=== PATIENT | male | born 1945 | race African-American/Black ===

== ENCOUNTER 2016-09-24 12:47 | Inpatient (IN) | payer BC, MEDICARE ==
[~2016-09-24] VITALS: Ht 165.1 cm; Wt 83.5 kg
[~2016-09-24 12:47] MED LIST: AMLO-511 PO; DIVA250T25 PO; FLUO-191 PO; METF500T4 PO
[2016-09-24 13:21] LABS: GLUCOSE,POINT OF CARE 102 MG/DL (70-110)
[2016-09-24] MEDS ORDERED: QUET300T2 PO (13:23)
[2016-09-24] MEDS ORDERED: RIVA15T PO (13:23)
[2016-09-24] MEDS ORDERED: GABA-531 PO (13:23)
[2016-09-24 14:32] LABS: BASOPHILS # (AUTO) 0.02 K/uL (0.00-0.20); BASOPHILS % (AUTO) 0.4 % (0.0-2.0); EOSINOPHILS # (AUTO) 0.42 K/uL (0.00-0.70); EOSINOPHILS % (AUTO) 7.66 % (1.0-6.0); HEMATOCRIT 40.3 % (41-53); HEMOGLOBIN 13.2 g/dL (13.5-17.5); LYMPHOCYTES # (AUTO) 1.4 K/uL (1.0-4.8); LYMPHOCYTES % (AUTO) 25.3 % (22.0-44.0); MEAN CORPUSCULAR HEMOGLOBIN 26.8 pg (26.0-34.0); MEAN CORPUSCULAR HGB CONC 32.7 G/dL (31.0-37.0); MEAN CORPUSCULAR VOLUME 82 fL (80-100); MONOCYTES # (AUTO) 0.5 K/uL (0.1-1.0); MONOCYTES % (AUTO) 8.3 % (2.0-9.0); NEUTROPHILS # (AUTO) 3.2 K/uL (1.8-7.7); NEUTROPHILS % (AUTO) 58.3 % (40.0-70.0); PLATELET COUNT (AUTO) 238 K/uL (150-450); RED BLOOD CELL COUNT(AUTO) 4.92 MIL/uL (4.50-5.90); RED CELL DISTRIBUTION WIDTH 16.2 % (11.5-14.5); WHITE BLOOD COUNT (AUTO) 5.5 K/uL (4.5-11.0)
[2016-09-24 14:43] LABS: ANION GAP 9 mmol/L (8-16); CALCIUM, TOTAL 8.8 mg/dL (8.8-10.5); CARBON DIOXIDE 28 mmol/L (22-29); CHLORIDE 108 mmol/L (98-107); CREATININE 2.22 mg/dL (0.60-1.30); GLOMERULAR FILTR. RATE CALC 36 mL/min (>60); POTASSIUM 4.8 mmol/L (3.5-5.1); SODIUM SERUM 145 mmol/L (136-145); UREA NITROGEN, BLOOD 22 mg/dL (7-18)
[2016-09-24 14:49] LABS: ALANINE AMINOTRANSFERASE 21 U/L (12-78); ALBUMIN 3.7 g/dL (3.4-5.0); ASPARTATE AMINOTRANSFERASE 17 U/L (15-37); BILIRUBIN,TOTAL 0.3 mg/dL (0.1-1.0); TOTAL PROTEIN, SERUM 7.5 g/dL (6.4-8.2)
[2016-09-24] MEDS ORDERED: HALOPERIDOL 5 MG TABLET PO PRN (16:15)
[2016-09-24] MEDS ORDERED: LORazepam 2 MG TABLET PO PRN (16:15)
[2016-09-24 17:30] VITALS: BP 107/73
[2016-09-25 07:24] LABS: PROTHROMBIN TIME 10.4 SEC (9.4-11.6)
[2016-09-25 07:37] LABS: CHOL/HDL RATIO 2.7 (4.2-7.3)
[2016-09-25 07:39] LABS: HEMOGLOBIN A1C 6.5 % (4.5-6.2)
[2016-09-25 08:30] VITALS: BP 119/77
[2016-09-25] MEDS ORDERED: AmLODIPine BESYLATE 5 MG TABLET PO SCH (09:00)
[2016-09-25] MEDS ORDERED: RIVAROXABAN 15 MG TABLET PO SCH (09:00)
[2016-09-25 11:24] LABS: CALCIUM, TOTAL 8.1 mg/dL (8.8-10.5); CREATININE 1.87 mg/dL (0.60-1.30); MAGNESIUM 1.9 mg/dL (1.80-2.40); PHOSPHORUS 4.1 mg/dL (2.5-4.9); POTASSIUM 4.8 mmol/L (3.5-5.1)
[2016-09-25 14:36] LABS: APPEARANCE,URINE CLEAR (CLEAR); GLUCOSE, URINE (UA) NEGATIVE (NEGATIVE); KETONES,URINE NEGATIVE (NEGATIVE); LEUKOCYTE ESTERASE ,URINE NEGATIVE (NEGATIVE); OCCULT BLOOD,URINE NEGATIVE (NEGATIVE); PH,URINE 5.5 (5.0-8.0); PROTEIN,URINE NEGATIVE (NEGATIVE)
[2016-09-25 14:41] LABS: RBC,URINE None Seen /HPF (0-2); SQUAMOUS EPITHELIAL CELL,UR Rare /LPF (None Seen); WBC,URINE None Seen /HPF (0-5)
[2016-09-25 16:00] VITALS: BP 138/81
[2016-09-25] MEDS: APIXABAN 5 MG TABLET PO SCH (17:18)
[2016-09-25] MEDS: ZOLPIDEM TARTRATE 10 MG TABLET PO PRN (23:47)
[2016-09-26 07:00] LABS: CALCIUM, TOTAL 7.6 mg/dL (8.8-10.5); CREATININE 1.63 mg/dL (0.60-1.30); MAGNESIUM 1.7 mg/dL (1.80-2.40); PHOSPHORUS 3.5 mg/dL (2.5-4.9); POTASSIUM 4.4 mmol/L (3.5-5.1)
[2016-09-26] MEDS ORDERED: MAGNESIUM OXIDE 400 MG TABLET PO ONE (08:15)
[2016-09-26] MEDS ORDERED: MAGNESIUM SULFATE 1 GM in DEXTROSE 5%-WATER 50 ML IV ONE (08:15)
[2016-09-26] MEDS: APIXABAN 5 MG TABLET PO SCH ×2 (08:27→16:04)
[2016-09-26 08:30] VITALS: BP 144/87
[2016-09-26 19:28] VITALS: BP 125/78
[2016-09-26] MEDS: ZOLPIDEM TARTRATE 10 MG TABLET PO PRN (21:44)
[2016-09-27 08:03] VITALS: BP 156/88
[2016-09-27] MEDS: APIXABAN 5 MG TABLET PO SCH ×2 (08:49→16:07)
[2016-09-27] MEDS: FLUoxetine HCL 20 MG CAPSULE PO SCH (08:50)
[2016-09-27] MEDS: GABAPENTIN 300 MG CAPSULE PO SCH (08:51)
[2016-09-27] MEDS: AmLODIPine BESYLATE 5 MG TABLET PO SCH (10:44)
[2016-09-27 17:00] VITALS: BP 129/78
[2016-09-27] MEDS ORDERED: QUEtiapine FUMARATE 300 MG TABLET PO SCH (21:00)
[2016-09-27] MEDS: ZOLPIDEM TARTRATE 10 MG TABLET PO PRN (22:15)
[2016-09-28 06:41] VITALS: BP 155/90
[2016-09-28 07:23] LABS: CREATININE 1.51 mg/dL (0.60-1.30); MAGNESIUM 1.8 mg/dL (1.80-2.40); POTASSIUM 4.2 mmol/L (3.5-5.1)
[2016-09-28 08:00] VITALS: BP 140/89
[2016-09-28] MEDS: APIXABAN 5 MG TABLET PO SCH ×2 (08:08→16:08)
[2016-09-28] MEDS: GABAPENTIN 300 MG CAPSULE PO SCH (08:08)
[2016-09-28] MEDS: AmLODIPine BESYLATE 5 MG TABLET PO SCH ×2 (08:08→09:00)
[2016-09-28] MEDS: FLUoxetine HCL 20 MG CAPSULE PO SCH (08:09)
[2016-09-28] MEDS ORDERED: AmLODIPine BESYLATE 2.5 MG TABLET PO ONE (10:00)
[2016-09-28] MEDS ORDERED: QUET200T PO (11:06)
[2016-09-28] MEDS ORDERED: ACETAMINOPHEN 325 MG TABLET PO PRN (11:15)
[2016-09-28 16:28] VITALS: BP 128/85
[2016-09-28] MEDS: ZOLPIDEM TARTRATE 10 MG TABLET PO PRN (21:43)
[2016-09-29] MEDS: ZIPRASIDONE HCL 40 MG CAPSULE PO SCH ×2 (06:57→17:36)
[2016-09-29 08:30] VITALS: BP 138/80
[2016-09-29] MEDS: FLUoxetine HCL 20 MG CAPSULE PO SCH (09:46)
[2016-09-29] MEDS: APIXABAN 5 MG TABLET PO SCH ×2 (09:46→17:36)
[2016-09-29] MEDS: GABAPENTIN 300 MG CAPSULE PO SCH ×2 (09:49→14:09)
[2016-09-29] MEDS: AmLODIPine BESYLATE 5 MG TABLET PO SCH (09:49)
[2016-09-29 16:22] VITALS: BP 155/76
[2016-09-30] MEDS: ZIPRASIDONE HCL 40 MG CAPSULE PO SCH ×2 (06:58→16:25)
[2016-09-30 08:05] VITALS: BP 144/80
[2016-09-30] MEDS: AmLODIPine BESYLATE 5 MG TABLET PO SCH (08:21)
[2016-09-30] MEDS: GABAPENTIN 300 MG CAPSULE PO SCH ×2 (08:22→16:25)
[2016-09-30] MEDS: APIXABAN 5 MG TABLET PO SCH ×2 (08:22→16:25)
[2016-09-30] MEDS ORDERED: FLUoxetine HCL 20 MG CAPSULE PO SCH (09:00)
[2016-09-30 17:32] VITALS: BP 151/86
[2016-09-30] MEDS: ZOLPIDEM TARTRATE 10 MG TABLET PO PRN (22:26)
[2016-10-01] MEDS ORDERED: ZIPRASIDONE HCL 60 MG CAPSULE PO SCH (07:30)
[2016-10-01] MEDS: GABAPENTIN 300 MG CAPSULE PO SCH (08:09)
[2016-10-01] MEDS: APIXABAN 5 MG TABLET PO SCH (08:09)
[2016-10-01] MEDS: AmLODIPine BESYLATE 5 MG TABLET PO SCH (08:09)
[2016-10-01] MEDS ORDERED: FLUoxetine HCL 20 MG CAPSULE PO SCH (09:00)
[2016-10-01 09:24] VITALS: BP 136/77
[2016-10-01] MEDS ORDERED: ZIPR60CA2 PO (14:33)
[2016-10-01] MEDS ORDERED: APIX5TAB PO (14:43)
== END 2016-10-01 15:00 | disposition home or self-care (01) | DRG 885 ==
LOC: EEVIPCON 12:54 → EMS 12:54 → 3EX 16:45
PROVIDERS: ADMIT Psychiatry & Neurology Psychiatry; ATTEND Psychiatry & Neurology Psychiatry
DX: F25.0 Schizoaffective disorder, bipolar type (principal); F14.20 Cocaine dependence, uncomplicated; N17.9 Acute kidney failure, unspecified; R45.851 Suicidal ideations; J44.9 Chronic obstructive pulmonary disease, unspecified; F17.210 Nicotine dependence, cigarettes, uncomplicated; E11.22 Type 2 diabetes mellitus with diabetic chronic kidney disease; I12.9 Hypertensive chronic kidney disease with stage 1 through stage 4 chronic kidney disease, or unspecified chronic kidney disease; K21.9 Gastro-esophageal reflux disease without esophagitis; N18.9 Chronic kidney disease, unspecified; N40.0 Benign prostatic hyperplasia without lower urinary tract symptoms; Z59.0 Homelessness; Z85.038 Personal history of other malignant neoplasm of large intestine; Z86.711 Personal history of pulmonary embolism; Z91.5 Personal history of self-harm; Z79.01 Long term (current) use of anticoagulants; Z79.899 Other long term (current) drug therapy
CPT/HCPCS: 76770; 82570; 82962; 83036; 83735; 84100; 84300; 84540; 99285; G0480

== ENCOUNTER 2016-11-17 10:26 | Inpatient (IN) | payer MEDICARE, SELFPAY ==
[~2016-11-17] VITALS: Ht 165.1 cm; Wt 79.4 kg
[~2016-11-17 10:26] MED LIST changes: +APIX5TAB PO; -DIVA250T25 PO; +GABA-531 PO; -METF500T4 PO; +ZIPR60CA2 PO
[2016-11-17] MEDS ORDERED: HALO1 PO (10:41)
[2016-11-17 10:47] LABS: GLUCOSE,POINT OF CARE 108 MG/DL (70-110)
[2016-11-17 11:33] LABS: ANION GAP 8 mmol/L (8-16); CALCIUM, TOTAL 8.9 mg/dL (8.8-10.5); CARBON DIOXIDE 30 mmol/L (22-29); CHLORIDE 103 mmol/L (98-107); CREATININE 1.71 mg/dL (0.60-1.30); GLOMERULAR FILTR. RATE CALC 48 mL/min (>60); POTASSIUM 4.1 mmol/L (3.5-5.1); SODIUM SERUM 141 mmol/L (136-145); UREA NITROGEN, BLOOD 9 mg/dL (7-18)
[2016-11-17 11:38] LABS: ALANINE AMINOTRANSFERASE 23 U/L (12-78); ALBUMIN 3.6 g/dL (3.4-5.0); ASPARTATE AMINOTRANSFERASE 15 U/L (15-37); BILIRUBIN,TOTAL 0.4 mg/dL (0.1-1.0); TOTAL PROTEIN, SERUM 7.5 g/dL (6.4-8.2)
[2016-11-17 11:39] LABS: BASOPHILS % (AUTO) 0.4 % (0.0-2.0); EOSINOPHILS % (AUTO) 1.5 % (1.0-6.0); HEMATOCRIT 43.3 % (41-53); HEMOGLOBIN 13.7 g/dL (13.5-17.5); LYMPHOCYTES % (AUTO) 20.6 % (22.0-44.0); MEAN CORPUSCULAR HEMOGLOBIN 26.1 pg (26.0-34.0); MEAN CORPUSCULAR HGB CONC 31.5 G/dL (31.0-37.0); MEAN CORPUSCULAR VOLUME 83 fL (80-100); MONOCYTES # (AUTO) 0.4 K/uL (0.1-1.0); MONOCYTES % (AUTO) 8.6 % (2.0-9.0); NEUTROPHILS # (AUTO) 3.5 K/uL (1.8-7.7); NEUTROPHILS % (AUTO) 68.9 % (40.0-70.0); PLATELET COUNT (AUTO) 252 K/uL (150-450); RED BLOOD CELL COUNT(AUTO) 5.22 MIL/uL (4.50-5.90); RED CELL DISTRIBUTION WIDTH 16.2 % (11.5-14.5); WHITE BLOOD COUNT (AUTO) 5.1 K/uL (4.5-11.0)
[2016-11-17] MEDS ORDERED: LORazepam 2 MG TABLET PO PRN (12:30)
[2016-11-17] MEDS ORDERED: HALOPERIDOL 5 MG TABLET PO PRN (12:30)
[2016-11-17] MEDS ORDERED: ZOLPIDEM TARTRATE 10 MG TABLET PO PRN (12:30)
[2016-11-17 16:41] VITALS: BP 142/76
[2016-11-17] MEDS ORDERED: ACETAMINOPHEN 325 MG TABLET PO PRN (21:00)
[2016-11-17] MEDS: APIXABAN 5 MG TABLET PO SCH (21:54)
[2016-11-17] MEDS: AMOXICILLIN TRIHYDRATE 500 MG CAPSULE PO SCH (23:51)
[2016-11-18 06:55] LABS: BASOPHILS # (AUTO) 0.03 K/uL (0.00-0.20); BASOPHILS % (AUTO) 0.6 % (0.0-2.0); EOSINOPHILS # (AUTO) 0.25 K/uL (0.00-0.70); EOSINOPHILS % (AUTO) 5.65 % (1.0-6.0); HEMATOCRIT 38.1 % (41-53); HEMOGLOBIN 12.2 g/dL (13.5-17.5); LYMPHOCYTES # (AUTO) 1.8 K/uL (1.0-4.8); LYMPHOCYTES % (AUTO) 39.3 % (22.0-44.0); MEAN CORPUSCULAR HEMOGLOBIN 26.7 pg (26.0-34.0); MEAN CORPUSCULAR HGB CONC 32.1 G/dL (31.0-37.0); MEAN CORPUSCULAR VOLUME 83 fL (80-100); MONOCYTES # (AUTO) 0.4 K/uL (0.1-1.0); MONOCYTES % (AUTO) 9.8 % (2.0-9.0); NEUTROPHILS % (AUTO) 44.6 % (40.0-70.0); PLATELET COUNT (AUTO) 210 K/uL (150-450); RED BLOOD CELL COUNT(AUTO) 4.58 MIL/uL (4.50-5.90); RED CELL DISTRIBUTION WIDTH 16.3 % (11.5-14.5); WHITE BLOOD COUNT (AUTO) 4.4 K/uL (4.5-11.0)
[2016-11-18 07:10] LABS: BILIRUBIN,TOTAL 0.3 mg/dL (0.1-1.0); CALCIUM, TOTAL 8.5 mg/dL (8.8-10.5); CHOL/HDL RATIO 2.7 (4.2-7.3); CREATININE 1.51 mg/dL (0.60-1.30); POTASSIUM 4.3 mmol/L (3.5-5.1); TOTAL PROTEIN, SERUM 6.5 g/dL (6.4-8.2)
[2016-11-18 08:02] LABS: HEMOGLOBIN A1C 6.7 % (4.5-6.2)
[2016-11-18 08:30] VITALS: BP 147/74
[2016-11-18] MEDS ORDERED: APIXABAN 5 MG TABLET PO SCH (09:00)
[2016-11-18] MEDS: APIXABAN 5 MG TABLET PO SCH ×2 (09:07→16:37)
[2016-11-18] MEDS: AMOXICILLIN TRIHYDRATE 500 MG CAPSULE PO SCH ×3 (09:07→16:37)
[2016-11-18] MEDS: AmLODIPine BESYLATE 5 MG TABLET PO SCH (09:08)
[2016-11-18] MEDS: GABAPENTIN 300 MG CAPSULE PO SCH (16:37)
[2016-11-18] MEDS: HALOPERIDOL 5 MG TABLET PO SCH (16:37)
[2016-11-18 16:49] VITALS: BP 129/68
[2016-11-19 06:51] VITALS: BP 144/91
[2016-11-19 08:30] VITALS: BP 136/77
[2016-11-19] MEDS: AmLODIPine BESYLATE 5 MG TABLET PO SCH (09:05)
[2016-11-19] MEDS: FLUoxetine HCL 20 MG CAPSULE PO SCH (09:05)
[2016-11-19] MEDS: APIXABAN 5 MG TABLET PO SCH ×2 (09:05→16:54)
[2016-11-19] MEDS: AMOXICILLIN TRIHYDRATE 500 MG CAPSULE PO SCH ×3 (09:06→16:54)
[2016-11-19] MEDS: GABAPENTIN 300 MG CAPSULE PO SCH ×2 (09:06→16:54)
[2016-11-19] MEDS: HALOPERIDOL 5 MG TABLET PO SCH ×2 (09:06→16:54)
[2016-11-19 18:28] VITALS: BP 147/78
[2016-11-20] MEDS: FLUoxetine HCL 20 MG CAPSULE PO SCH (08:02)
[2016-11-20] MEDS: HALOPERIDOL 5 MG TABLET PO SCH ×2 (08:03→16:24)
[2016-11-20] MEDS: AmLODIPine BESYLATE 5 MG TABLET PO SCH (08:03)
[2016-11-20] MEDS: AMOXICILLIN TRIHYDRATE 500 MG CAPSULE PO SCH ×3 (08:03→16:24)
[2016-11-20] MEDS: APIXABAN 5 MG TABLET PO SCH ×2 (08:03→16:24)
[2016-11-20] MEDS: GABAPENTIN 300 MG CAPSULE PO SCH ×2 (08:03→16:24)
[2016-11-20 10:41] VITALS: BP 147/82
[2016-11-20 20:07] VITALS: BP 121/68
[2016-11-21] MEDS: AmLODIPine BESYLATE 5 MG TABLET PO SCH (09:00)
[2016-11-21] MEDS: HALOPERIDOL 5 MG TABLET PO SCH ×2 (09:00→16:55)
[2016-11-21] MEDS: FLUoxetine HCL 20 MG CAPSULE PO SCH (09:01)
[2016-11-21] MEDS: AMOXICILLIN TRIHYDRATE 500 MG CAPSULE PO SCH ×3 (09:01→16:54)
[2016-11-21] MEDS: APIXABAN 5 MG TABLET PO SCH ×2 (09:02→16:55)
[2016-11-21] MEDS: GABAPENTIN 300 MG CAPSULE PO SCH ×2 (09:02→16:55)
[2016-11-21 10:38] VITALS: BP 144/82
[2016-11-21 17:18] VITALS: BP 142/76
[2016-11-22 08:52] VITALS: BP 141/80
[2016-11-22] MEDS: GABAPENTIN 300 MG CAPSULE PO SCH ×2 (08:53→16:25)
[2016-11-22] MEDS: AmLODIPine BESYLATE 5 MG TABLET PO SCH (08:53)
[2016-11-22] MEDS: HALOPERIDOL 5 MG TABLET PO SCH ×2 (08:54→16:25)
[2016-11-22] MEDS: APIXABAN 5 MG TABLET PO SCH ×2 (08:54→16:25)
[2016-11-22] MEDS: AMOXICILLIN TRIHYDRATE 500 MG CAPSULE PO SCH ×3 (08:54→16:25)
[2016-11-22] MEDS: FLUoxetine HCL 20 MG CAPSULE PO SCH (08:54)
[2016-11-22 19:29] VITALS: BP 139/79
[2016-11-23 09:00] VITALS: BP 123/72
[2016-11-23] MEDS: GABAPENTIN 300 MG CAPSULE PO SCH (10:01)
[2016-11-23] MEDS: APIXABAN 5 MG TABLET PO SCH (10:01)
[2016-11-23] MEDS: AmLODIPine BESYLATE 5 MG TABLET PO SCH (10:01)
[2016-11-23] MEDS: FLUoxetine HCL 20 MG CAPSULE PO SCH (10:02)
[2016-11-23] MEDS: HALOPERIDOL 5 MG TABLET PO SCH (10:02)
== END 2016-11-23 15:00 | disposition home or self-care (01) | DRG 885 ==
LOC: EMS 10:28 → EEVIPCON 10:28 → 3EX 16:30
PROVIDERS: ADMIT Psychiatry & Neurology Child & Adolescent Psychiatry
PROC: GZHZZZZ Group Psychotherapy (ICD-10-PCS; principal; 2016-11-18)
DX: F25.1 Schizoaffective disorder, depressive type (principal); R45.851 Suicidal ideations; I12.9 Hypertensive chronic kidney disease with stage 1 through stage 4 chronic kidney disease, or unspecified chronic kidney disease; E11.22 Type 2 diabetes mellitus with diabetic chronic kidney disease; F17.210 Nicotine dependence, cigarettes, uncomplicated; F14.90 Cocaine use, unspecified, uncomplicated; K21.9 Gastro-esophageal reflux disease without esophagitis; N18.9 Chronic kidney disease, unspecified; N40.0 Benign prostatic hyperplasia without lower urinary tract symptoms; K08.89 Other specified disorders of teeth and supporting structures; D64.9 Anemia, unspecified; Z91.5 Personal history of self-harm; Z85.038 Personal history of other malignant neoplasm of large intestine; Z86.711 Personal history of pulmonary embolism; Z87.19 Personal history of other diseases of the digestive system; Z79.01 Long term (current) use of anticoagulants; Z90.49 Acquired absence of other specified parts of digestive tract; Z91.14 Patient's other noncompliance with medication regimen; Z79.899 Other long term (current) drug therapy
CPT/HCPCS: 82962; 83036; 87081; 99285; G0480

== ENCOUNTER 2017-01-13 18:43 | Inpatient (IN) | payer MEDICARE, SELFPAY ==
[~2017-01-13] VITALS: Ht 165.1 cm; Wt 83.0 kg
[~2017-01-13 18:43] MED LIST changes: +HALO1 PO; -ZIPR60CA2 PO
[2017-01-13 19:44] LABS: BASOPHILS % (AUTO) 1.2 % (0.0-2.0); EOSINOPHILS % (AUTO) 4.9 % (1.0-6.0); HEMATOCRIT 41.2 % (41-53); HEMOGLOBIN 13.7 g/dL (13.5-17.5); LYMPHOCYTES # (AUTO) 1.7 K/uL (1.0-4.8); LYMPHOCYTES % (AUTO) 30.8 % (22.0-44.0); MEAN CORPUSCULAR HEMOGLOBIN 27.2 pg (26.0-34.0); MEAN CORPUSCULAR HGB CONC 33.3 G/dL (31.0-37.0); MEAN CORPUSCULAR VOLUME 82 fL (80-100); MONOCYTES # (AUTO) 0.6 K/uL (0.1-1.0); MONOCYTES % (AUTO) 10.8 % (2.0-9.0); NEUTROPHILS # (AUTO) 2.9 K/uL (1.8-7.7); NEUTROPHILS % (AUTO) 52.3 % (40.0-70.0); PLATELET COUNT (AUTO) 252 K/uL (150-450); RED BLOOD CELL COUNT(AUTO) 5.04 MIL/uL (4.50-5.90); WHITE BLOOD COUNT (AUTO) 5.5 K/uL (4.5-11.0)
[2017-01-13 19:59] LABS: ANION GAP 7 mmol/L (8-16); CALCIUM, TOTAL 8.8 mg/dL (8.8-10.5); CARBON DIOXIDE 28 mmol/L (22-29); CHLORIDE 103 mmol/L (98-107); CREATININE 1.48 mg/dL (0.60-1.30); GLOMERULAR FILTR. RATE CALC 57 mL/min (>60); POTASSIUM 3.9 mmol/L (3.5-5.1); SODIUM SERUM 138 mmol/L (136-145); UREA NITROGEN, BLOOD 14 mg/dL (7-18)
[2017-01-13 20:06] LABS: ALANINE AMINOTRANSFERASE 20 U/L (12-78); ALBUMIN 4.1 g/dL (3.4-5.0); ASPARTATE AMINOTRANSFERASE 14 U/L (15-37); BILIRUBIN,TOTAL 0.4 mg/dL (0.1-1.0)
[2017-01-13] MEDS ORDERED: HALOPERIDOL 5 MG TABLET PO ONE (21:00)
[2017-01-13 21:21] LABS: APPEARANCE,URINE CLEAR (CLEAR); GLUCOSE, URINE (UA) NEGATIVE (NEGATIVE); KETONES,URINE NEGATIVE (NEGATIVE); LEUKOCYTE ESTERASE ,URINE NEGATIVE (NEGATIVE); OCCULT BLOOD,URINE NEGATIVE (NEGATIVE); PH,URINE 5.5 (5.0-8.0); PROTEIN,URINE NEGATIVE (NEGATIVE)
[2017-01-13 21:38] LABS: ADD UA MICROSCOPIC NO
[2017-01-14 01:47] VITALS: BP 147/82
[2017-01-14 07:30] LABS: CHOL/HDL RATIO 2.5 (4.2-7.3)
[2017-01-14 08:01] VITALS: BP 153/81
[2017-01-14] MEDS ORDERED: BACITRACIN 28.4 GM OINTMENT TP PRN (08:15)
[2017-01-14] MEDS ORDERED: MAG HYDROX/AL HYDROX/SIMETH ES 30 ML SUSPENSION UDCUP PO PRN (08:15)
[2017-01-14] MEDS ORDERED: CloNIDine HCL 0.1 MG TABLET PO PRN (08:15)
[2017-01-14] MEDS ORDERED: ALBUTEROL SULFATE HFA 90 MCG/PUFF 8 GM INHALER IH PRN (08:15)
[2017-01-14] MEDS ORDERED: ACETAMINOPHEN 325 MG TABLET PO PRN (08:15)
[2017-01-14] MEDS ORDERED: LOPERAMIDE HCL 2 MG CAPSULE PO PRN (08:15)
[2017-01-14] MEDS ORDERED: MAGNESIUM HYDROXIDE SUSPENSION 30 ML UDCUP PO PRN (08:15)
[2017-01-14] MEDS ORDERED: IBUPROFEN 600 MG TABLET PO PRN (08:15)
[2017-01-14] MEDS ORDERED: PETROLATUM,WHITE 71 GM JELLY TP PRN (08:15)
[2017-01-14] MEDS ORDERED: ONDANSETRON HCL 4 MG TABLET PO PRN (08:15)
[2017-01-14] MEDS ORDERED: BENZOCAINE/MENTHOL LOZENGE [8 LOZENGES/PACKET] MM PRN (08:30)
[2017-01-14] MEDS ORDERED: DEXTROSE 50%-WATER 25 GM/50 ML SYRINGE IVP PRN (09:00)
[2017-01-14] MEDS: APIXABAN 5 MG TABLET PO SCH ×2 (10:05→16:22)
[2017-01-14] MEDS: AmLODIPine BESYLATE 5 MG TABLET PO SCH (10:05)
[2017-01-14] MEDS: GABAPENTIN 300 MG CAPSULE PO SCH ×2 (10:06→16:22)
[2017-01-14 16:35] VITALS: BP 126/53
[2017-01-14 17:13] LABS: GLUCOSE,POINT OF CARE 107 MG/DL (70-110)
[2017-01-14] MEDS ORDERED: HALO5 PO (18:00)
[2017-01-14] MEDS: DIVALPROEX SODIUM 500 MG DR TABLET PO SCH (19:49)
[2017-01-14 20:32] LABS: GLUCOSE,POINT OF CARE 88 MG/DL (70-110)
[2017-01-14] MEDS: OLANZapine 10 MG TABLET PO SCH (21:00)
[2017-01-14] MEDS: ZOLPIDEM TARTRATE 10 MG TABLET PO PRN (21:20)
[2017-01-15 05:32] LABS: GLUCOSE COMMENT 1 Juice/Food/D50 Given; GLUCOSE,POINT OF CARE 77 MG/DL (70-110)
[2017-01-15] MEDS: INSULIN ASPART 100 UNITS/ML SQ PRN ×2 (06:32→11:46)
[2017-01-15 08:01] VITALS: BP 141/84
[2017-01-15] MEDS: GABAPENTIN 300 MG CAPSULE PO SCH ×3 (08:56→16:31)
[2017-01-15] MEDS: DIVALPROEX SODIUM 500 MG DR TABLET PO SCH ×2 (08:56→16:30)
[2017-01-15] MEDS: APIXABAN 5 MG TABLET PO SCH ×2 (08:56→16:30)
[2017-01-15] MEDS: AmLODIPine BESYLATE 5 MG TABLET PO SCH (08:56)
[2017-01-15 11:47] LABS: GLUCOSE,POINT OF CARE 82 MG/DL (70-110)
[2017-01-15 16:42] LABS: GLUCOSE,POINT OF CARE 82 MG/DL (70-110)
[2017-01-15 16:43] VITALS: BP 150/75
[2017-01-15] MEDS: OLANZapine 10 MG TABLET PO SCH (21:00)
[2017-01-15] MEDS: ZOLPIDEM TARTRATE 10 MG TABLET PO PRN (21:42)
[2017-01-15 21:48] LABS: GLUCOSE,POINT OF CARE 94 MG/DL (70-110)
[2017-01-16 05:32] LABS: GLUCOSE,POINT OF CARE 93 MG/DL (70-110)
[2017-01-16 06:59] LABS: BASOPHILS # (AUTO) 0.02 K/uL (0.00-0.20); BASOPHILS % (AUTO) 0.4 % (0.0-2.0); EOSINOPHILS # (AUTO) 0.33 K/uL (0.00-0.70); HEMATOCRIT 39.9 % (41-53); HEMOGLOBIN 12.9 g/dL (13.5-17.5); LYMPHOCYTES # (AUTO) 1.7 K/uL (1.0-4.8); LYMPHOCYTES % (AUTO) 36.4 % (22.0-44.0); MEAN CORPUSCULAR HEMOGLOBIN 27.3 pg (26.0-34.0); MEAN CORPUSCULAR HGB CONC 32.5 G/dL (31.0-37.0); MEAN CORPUSCULAR VOLUME 84 fL (80-100); MONOCYTES # (AUTO) 0.5 K/uL (0.1-1.0); MONOCYTES % (AUTO) 9.8 % (2.0-9.0); NEUTROPHILS # (AUTO) 2.1 K/uL (1.8-7.7); NEUTROPHILS % (AUTO) 46.3 % (40.0-70.0); PLATELET COUNT (AUTO) 219 K/uL (150-450); RED BLOOD CELL COUNT(AUTO) 4.74 MIL/uL (4.50-5.90); RED CELL DISTRIBUTION WIDTH 15.3 % (11.5-14.5); WHITE BLOOD COUNT (AUTO) 4.6 K/uL (4.5-11.0)
[2017-01-16 07:13] LABS: ALANINE AMINOTRANSFERASE 14 U/L (12-78); ALBUMIN 3.5 g/dL (3.4-5.0); ANION GAP 8 mmol/L (8-16); ASPARTATE AMINOTRANSFERASE 10 U/L (15-37); BILIRUBIN,TOTAL 0.4 mg/dL (0.1-1.0); CALCIUM, TOTAL 8.7 mg/dL (8.8-10.5); CARBON DIOXIDE 30 mmol/L (22-29); CHLORIDE 107 mmol/L (98-107); CREATININE 1.38 mg/dL (0.60-1.30); GLOMERULAR FILTR. RATE CALC > 60 mL/min (>60); PHOSPHORUS 3.7 mg/dL (2.5-4.9); POTASSIUM 4.5 mmol/L (3.5-5.1); SODIUM SERUM 145 mmol/L (136-145); TOTAL PROTEIN, SERUM 6.7 g/dL (6.4-8.2); UREA NITROGEN, BLOOD 16 mg/dL (7-18)
[2017-01-16 08:00] VITALS: BP 128/81
[2017-01-16] MEDS: HALOPERIDOL 5 MG TABLET PO PRN (08:05)
[2017-01-16] MEDS: LORazepam 2 MG TABLET PO PRN (08:05)
[2017-01-16] MEDS: DIVALPROEX SODIUM 500 MG DR TABLET PO SCH ×2 (08:06→18:01)
[2017-01-16] MEDS: AmLODIPine BESYLATE 5 MG TABLET PO SCH (08:06)
[2017-01-16] MEDS: APIXABAN 5 MG TABLET PO SCH ×2 (08:06→18:00)
[2017-01-16] MEDS: GABAPENTIN 300 MG CAPSULE PO SCH ×3 (08:06→18:01)
[2017-01-16 11:27] LABS: GLUCOSE,POINT OF CARE 93 MG/DL (70-110)
[2017-01-16] MEDS: INSULIN ASPART 100 UNITS/ML SQ PRN (11:31)
[2017-01-16 16:03] VITALS: BP 134/86
[2017-01-16 18:13] LABS: GLUCOSE COMMENT 1 FASTING; GLUCOSE,POINT OF CARE 103 MG/DL (70-110)
[2017-01-16] MEDS: OLANZapine 10 MG TABLET PO SCH (20:54)
[2017-01-16 22:22] LABS: GLUCOSE COMMENT 1 FASTING; GLUCOSE,POINT OF CARE 97 MG/DL (70-110)
[2017-01-17] MEDS: LORazepam 2 MG TABLET PO PRN (03:36)
[2017-01-17 06:03] LABS: GLUCOSE,POINT OF CARE 90 MG/DL (70-110)
[2017-01-17] MEDS: INSULIN ASPART 100 UNITS/ML SQ PRN ×2 (06:50→12:21)
[2017-01-17 08:00] VITALS: BP 131/79
[2017-01-17] MEDS: APIXABAN 5 MG TABLET PO SCH ×2 (09:13→17:23)
[2017-01-17] MEDS: AmLODIPine BESYLATE 5 MG TABLET PO SCH (09:13)
[2017-01-17] MEDS: GABAPENTIN 300 MG CAPSULE PO SCH ×3 (09:13→17:23)
[2017-01-17] MEDS: DIVALPROEX SODIUM 500 MG DR TABLET PO SCH ×2 (09:13→17:23)
[2017-01-17 11:52] LABS: GLUCOSE,POINT OF CARE 94 MG/DL (70-110)
[2017-01-17 16:45] VITALS: BP 120/79
[2017-01-17 17:32] LABS: GLUCOSE COMMENT 1 FASTING; GLUCOSE,POINT OF CARE 80 MG/DL (70-110)
[2017-01-17] MEDS: OLANZapine 10 MG TABLET PO SCH (20:29)
[2017-01-17] MEDS: ZOLPIDEM TARTRATE 10 MG TABLET PO PRN (20:50)
[2017-01-17 20:56] LABS: GLUCOSE COMMENT 1 FASTING; GLUCOSE,POINT OF CARE 101 MG/DL (70-110)
[2017-01-18 03:45] VITALS: BP 149/86
[2017-01-18] MEDS: LORazepam 2 MG TABLET PO PRN ×2 (03:45→08:25)
[2017-01-18 06:03] LABS: GLUCOSE,POINT OF CARE 91 MG/DL (70-110)
[2017-01-18] MEDS: INSULIN ASPART 100 UNITS/ML SQ PRN (06:33)
[2017-01-18] MEDS: APIXABAN 5 MG TABLET PO SCH ×2 (08:25→17:21)
[2017-01-18] MEDS: GABAPENTIN 300 MG CAPSULE PO SCH ×3 (08:25→17:21)
[2017-01-18] MEDS: AmLODIPine BESYLATE 5 MG TABLET PO SCH (08:25)
[2017-01-18] MEDS: HALOPERIDOL 5 MG TABLET PO PRN (08:25)
[2017-01-18 08:59] VITALS: BP 130/87
[2017-01-18] MEDS: DIVALPROEX SODIUM 500 MG DR TABLET PO SCH ×2 (11:02→17:21)
[2017-01-18 11:27] LABS: GLUCOSE,POINT OF CARE 94 MG/DL (70-110)
[2017-01-18] MEDS: FERROUS SULFATE 325 MG EC TABLET PO SCH (17:21)
[2017-01-18 17:28] LABS: GLUCOSE,POINT OF CARE 83 MG/DL (70-110)
[2017-01-18 20:18] VITALS: BP 150/76
[2017-01-18] MEDS: QUEtiapine FUMARATE 100 MG TABLET PO SCH (21:00)
[2017-01-18 21:51] LABS: GLUCOSE,POINT OF CARE 131 MG/DL (70-110)
[2017-01-19 06:33] LABS: GLUCOSE,POINT OF CARE 92 MG/DL (70-110)
[2017-01-19] MEDS: FERROUS SULFATE 325 MG EC TABLET PO SCH ×2 (06:56→17:57)
[2017-01-19] MEDS: INSULIN ASPART 100 UNITS/ML SQ PRN (06:56)
[2017-01-19 08:00] VITALS: BP 142/81
[2017-01-19] MEDS: GABAPENTIN 300 MG CAPSULE PO SCH ×3 (08:15→15:58)
[2017-01-19] MEDS: AmLODIPine BESYLATE 5 MG TABLET PO SCH (08:15)
[2017-01-19] MEDS: DIVALPROEX SODIUM 500 MG DR TABLET PO SCH ×2 (08:15→15:58)
[2017-01-19] MEDS: APIXABAN 5 MG TABLET PO SCH ×2 (08:15→15:55)
[2017-01-19 11:42] LABS: GLUCOSE,POINT OF CARE 112 MG/DL (70-110)
[2017-01-19 16:02] LABS: GLUCOSE COMMENT 1 Received Meds; GLUCOSE,POINT OF CARE 124 MG/DL (70-110)
[2017-01-19 17:02] VITALS: BP 121/71
[2017-01-19] MEDS: QUEtiapine FUMARATE 100 MG TABLET PO SCH (20:37)
[2017-01-19 20:42] LABS: GLUCOSE COMMENT 1 Received Meds; GLUCOSE,POINT OF CARE 130 MG/DL (70-110)
[2017-01-20 06:33] LABS: GLUCOSE COMMENT 1 Juice/Food/D50 Given; GLUCOSE,POINT OF CARE 66 MG/DL (70-110)
[2017-01-20 06:33] LABS: GLUCOSE,POINT OF CARE 106 MG/DL (70-110)
[2017-01-20] MEDS: FERROUS SULFATE 325 MG EC TABLET PO SCH ×2 (06:57→17:39)
[2017-01-20] MEDS: GABAPENTIN 300 MG CAPSULE PO SCH ×3 (08:48→16:47)
[2017-01-20] MEDS: AmLODIPine BESYLATE 5 MG TABLET PO SCH (08:49)
[2017-01-20] MEDS: APIXABAN 5 MG TABLET PO SCH ×2 (08:49→16:46)
[2017-01-20] MEDS: DIVALPROEX SODIUM 500 MG DR TABLET PO SCH ×2 (08:50→16:46)
[2017-01-20] MEDS: INSULIN ASPART 100 UNITS/ML SQ PRN (11:38)
[2017-01-20 11:42] LABS: GLUCOSE,POINT OF CARE 108 MG/DL (70-110)
[2017-01-20 13:01] VITALS: BP 124/68
[2017-01-20 16:00] VITALS: BP 132/74
[2017-01-20 16:52] LABS: GLUCOSE,POINT OF CARE 99 MG/DL (70-110)
[2017-01-20 20:07] LABS: GLUCOSE,POINT OF CARE 120 MG/DL (70-110)
[2017-01-20] MEDS: ZOLPIDEM TARTRATE 10 MG TABLET PO PRN (20:44)
[2017-01-20] MEDS ORDERED: HALOPERIDOL 5 MG TABLET PO SCH (21:00)
[2017-01-21 05:52] LABS: GLUCOSE,POINT OF CARE 86 MG/DL (70-110)
[2017-01-21] MEDS: FERROUS SULFATE 325 MG EC TABLET PO SCH (06:55)
[2017-01-21] MEDS: INSULIN ASPART 100 UNITS/ML SQ PRN (06:56)
[2017-01-21] MEDS: AmLODIPine BESYLATE 5 MG TABLET PO SCH (08:14)
[2017-01-21] MEDS: GABAPENTIN 300 MG CAPSULE PO SCH ×2 (08:14→12:39)
[2017-01-21] MEDS: APIXABAN 5 MG TABLET PO SCH (08:15)
[2017-01-21] MEDS: DIVALPROEX SODIUM 500 MG DR TABLET PO SCH (08:15)
[2017-01-21] MEDS ORDERED: DIVA500T35 PO (09:24)
[2017-01-21] MEDS ORDERED: FERR-89 PO ×2 (09:40→09:42)
== END 2017-01-21 10:15 | disposition home or self-care (01) | DRG 885 ==
LOC: EMS 18:48 → 3EI 21:34
PROVIDERS: ADMIT Psychiatry & Neurology Psychiatry; ATTEND Psychiatry & Neurology Psychiatry
DX: F25.9 Schizoaffective disorder, unspecified (principal); I26.99 Other pulmonary embolism without acute cor pulmonale; R45.851 Suicidal ideations; N17.9 Acute kidney failure, unspecified; K59.00 Constipation, unspecified; E11.9 Type 2 diabetes mellitus without complications; F32.9 Major depressive disorder, single episode, unspecified; F17.210 Nicotine dependence, cigarettes, uncomplicated; I10 Essential (primary) hypertension; K21.9 Gastro-esophageal reflux disease without esophagitis; D64.9 Anemia, unspecified; K57.90 Diverticulosis of intestine, part unspecified, without perforation or abscess without bleeding; M19.90 Unspecified osteoarthritis, unspecified site; Z86.711 Personal history of pulmonary embolism; Z90.49 Acquired absence of other specified parts of digestive tract; Z71.6 Tobacco abuse counseling
CPT/HCPCS: 82962; 83735; 84100; 99285; G0480

== ENCOUNTER 2017-04-29 11:32 | Emergency (ER) | payer MEDICARE, SELFPAY ==
[~2017-04-29] VITALS: Ht 167.6 cm; Wt 69.0 kg
[~2017-04-29 11:32] MED LIST changes: +DIVA500T35 PO; +FERR-89 PO; -FLUO-191 PO; -HALO1 PO; +HALO5 PO
[2017-04-29 12:00] LABS: GLUCOSE,POINT OF CARE 109 MG/DL (70-110)
[2017-04-29 12:06] VITALS: BP 153/85
== END 2017-04-29 12:22 | disposition home or self-care (01) ==
LOC: EMS 11:33
DX: B35.1 Tinea unguium (principal); E11.9 Type 2 diabetes mellitus without complications; I10 Essential (primary) hypertension; F17.210 Nicotine dependence, cigarettes, uncomplicated
CPT/HCPCS: 82962; 99283

== ENCOUNTER 2017-05-01 09:32 | Inpatient (IN) | payer MEDICARE ==
[~2017-05-01] VITALS: Ht 165.1 cm; Wt 77.7 kg
[2017-05-01 09:51] LABS: GLUCOSE,POINT OF CARE 91 MG/DL (70-110)
[2017-05-01 09:57] LABS: BASOPHILS # (AUTO) 0.08 K/uL (0.00-0.20); BASOPHILS % (AUTO) 1.4 % (0.0-2.0); EOSINOPHILS # (AUTO) 0.29 K/uL (0.00-0.70); EOSINOPHILS % (AUTO) 5.39 % (1.0-6.0); HEMATOCRIT 42.3 % (41-53); HEMOGLOBIN 13.8 g/dL (13.5-17.5); LYMPHOCYTES # (AUTO) 1.5 K/uL (1.0-4.8); LYMPHOCYTES % (AUTO) 26.8 % (22.0-44.0); MEAN CORPUSCULAR HEMOGLOBIN 27.9 pg (26.0-34.0); MEAN CORPUSCULAR HGB CONC 32.6 G/dL (31.0-37.0); MEAN CORPUSCULAR VOLUME 85 fL (80-100); MONOCYTES # (AUTO) 0.6 K/uL (0.1-1.0); MONOCYTES % (AUTO) 10.9 % (2.0-9.0); NEUTROPHILS % (AUTO) 55.6 % (40.0-70.0); PLATELET COUNT (AUTO) 189 K/uL (150-450); RED BLOOD CELL COUNT(AUTO) 4.96 MIL/uL (4.50-5.90); RED CELL DISTRIBUTION WIDTH 14.8 % (11.5-14.5); WHITE BLOOD COUNT (AUTO) 5.4 K/uL (4.5-11.0)
[2017-05-01 10:21] LABS: ANION GAP 6 mmol/L (8-16); CALCIUM, TOTAL 8.6 mg/dL (8.8-10.5); CARBON DIOXIDE 29 mmol/L (22-29); CHLORIDE 107 mmol/L (98-107); CREATININE 1.43 mg/dL (0.60-1.30); GLOMERULAR FILTR. RATE CALC 59 mL/min (>60); SODIUM SERUM 142 mmol/L (136-145); UREA NITROGEN, BLOOD 11 mg/dL (7-18)
[2017-05-01 10:28] LABS: ALANINE AMINOTRANSFERASE 17 U/L (12-78); ALBUMIN 3.6 g/dL (3.4-5.0); ASPARTATE AMINOTRANSFERASE 17 U/L (15-37); BILIRUBIN,TOTAL 0.4 mg/dL (0.1-1.0); TOTAL PROTEIN, SERUM 7.4 g/dL (6.4-8.2)
[2017-05-01] MEDS ORDERED: GABAPENTIN 100 MG CAPSULE PO ONE (12:00)
[2017-05-01] MEDS ORDERED: HALOPERIDOL 5 MG TABLET PO ONE (12:00)
[2017-05-01] MEDS ORDERED: FLUoxetine HCL 20 MG CAPSULE PO ONE (12:00)
[2017-05-01] MEDS ORDERED: HALOPERIDOL 5 MG TABLET PO PRN (12:15)
[2017-05-01] MEDS ORDERED: ZOLPIDEM TARTRATE 10 MG TABLET PO PRN (12:15)
[2017-05-01] MEDS ORDERED: LORazepam 2 MG TABLET PO PRN (12:15)
[2017-05-01 13:45] VITALS: BP 162/94
[2017-05-01] MEDS: AmLODIPine BESYLATE 5 MG TABLET PO SCH (14:52)
[2017-05-01] MEDS: HALOPERIDOL 5 MG TABLET PO SCH (16:23)
[2017-05-01] MEDS: GABAPENTIN 300 MG CAPSULE PO SCH (16:23)
[2017-05-01 19:11] VITALS: BP 145/92
[2017-05-01] MEDS: BENZTROPINE MESYLATE 1 MG TABLET PO SCH (20:54)
[2017-05-02 06:49] VITALS: BP 133/70
[2017-05-02 08:35] VITALS: BP 143/68
[2017-05-02] MEDS: GABAPENTIN 300 MG CAPSULE PO SCH ×2 (08:42→16:02)
[2017-05-02] MEDS: AmLODIPine BESYLATE 5 MG TABLET PO SCH (08:42)
[2017-05-02] MEDS: HALOPERIDOL 5 MG TABLET PO SCH ×2 (08:42→16:02)
[2017-05-02] MEDS: FLUoxetine HCL 20 MG CAPSULE PO SCH (08:43)
[2017-05-02] MEDS ORDERED: ALBUTEROL SULFATE HFA 90 MCG/PUFF 8 GM INHALER IH PRN (09:45)
[2017-05-02] MEDS ORDERED: ACETAMINOPHEN 325 MG TABLET PO PRN (09:45)
[2017-05-02] MEDS ORDERED: BENZOCAINE/MENTHOL LOZENGE MM PRN (09:45)
[2017-05-02] MEDS ORDERED: CloNIDine HCL 0.1 MG TABLET PO PRN (09:45)
[2017-05-02] MEDS ORDERED: BACITRACIN 28.4 GM OINTMENT TP PRN (09:45)
[2017-05-02] MEDS ORDERED: MAGNESIUM HYDROXIDE SUSPENSION 30 ML UDCUP PO PRN (09:45)
[2017-05-02] MEDS ORDERED: MAG HYDROX/AL HYDROX/SIMETH ES 30 ML SUSPENSION UDCUP PO PRN (09:45)
[2017-05-02] MEDS ORDERED: IBUPROFEN 600 MG TABLET PO PRN (09:45)
[2017-05-02] MEDS ORDERED: ONDANSETRON HCL 4 MG TABLET PO PRN (09:45)
[2017-05-02] MEDS ORDERED: LOPERAMIDE HCL 2 MG CAPSULE PO PRN (09:45)
[2017-05-02] MEDS ORDERED: PETROLATUM,WHITE 71 GM JELLY TP PRN (09:45)
[2017-05-02] MEDS: APIXABAN 5 MG TABLET PO SCH ×2 (10:55→16:01)
[2017-05-02 16:18] VITALS: BP 133/72
[2017-05-02] MEDS: BENZTROPINE MESYLATE 1 MG TABLET PO SCH (20:25)
[2017-05-03 06:32] VITALS: BP 139/84
[2017-05-03] MEDS: AmLODIPine BESYLATE 5 MG TABLET PO SCH (08:33)
[2017-05-03] MEDS: HALOPERIDOL 5 MG TABLET PO SCH ×2 (08:33→17:15)
[2017-05-03] MEDS: GABAPENTIN 300 MG CAPSULE PO SCH ×2 (08:33→17:15)
[2017-05-03] MEDS: APIXABAN 5 MG TABLET PO SCH ×2 (08:34→17:15)
[2017-05-03] MEDS: FLUoxetine HCL 20 MG CAPSULE PO SCH (09:17)
[2017-05-03 12:43] VITALS: BP 130/78
[2017-05-03 18:45] VITALS: BP 120/67
[2017-05-03] MEDS: BENZTROPINE MESYLATE 1 MG TABLET PO SCH (20:45)
[2017-05-04 05:01] VITALS: BP 127/72
[2017-05-04 07:27] LABS: CHOL/HDL RATIO 2.9 (4.2-7.3); THYROID STIMULATING HORMONE 1.74 uIU/mL (0.36-3.74)
[2017-05-04] MEDS: AmLODIPine BESYLATE 5 MG TABLET PO SCH (07:58)
[2017-05-04] MEDS: GABAPENTIN 300 MG CAPSULE PO SCH ×2 (07:58→16:13)
[2017-05-04] MEDS: HALOPERIDOL 5 MG TABLET PO SCH ×2 (07:59→16:13)
[2017-05-04] MEDS: FLUoxetine HCL 20 MG CAPSULE PO SCH (08:00)
[2017-05-04] MEDS: APIXABAN 5 MG TABLET PO SCH ×2 (08:00→16:13)
[2017-05-04 08:53] VITALS: BP 132/87
[2017-05-04 16:54] VITALS: BP 130/79
[2017-05-04] MEDS: BENZTROPINE MESYLATE 1 MG TABLET PO SCH (20:07)
[2017-05-05 08:05] VITALS: BP 121/71
[2017-05-05] MEDS: HALOPERIDOL 5 MG TABLET PO SCH ×2 (08:52→20:11)
[2017-05-05] MEDS: GABAPENTIN 300 MG CAPSULE PO SCH ×2 (08:52→16:59)
[2017-05-05] MEDS: AmLODIPine BESYLATE 5 MG TABLET PO SCH (08:52)
[2017-05-05] MEDS: FLUoxetine HCL 20 MG CAPSULE PO SCH (08:53)
[2017-05-05] MEDS: APIXABAN 5 MG TABLET PO SCH ×2 (08:53→16:59)
[2017-05-05 16:52] VITALS: BP 118/69
[2017-05-05] MEDS: BENZTROPINE MESYLATE 1 MG TABLET PO SCH (20:11)
[2017-05-06] MEDS: APIXABAN 5 MG TABLET PO SCH ×2 (08:42→16:14)
[2017-05-06] MEDS: BENZTROPINE MESYLATE 1 MG TABLET PO SCH ×3 (08:42→20:05)
[2017-05-06] MEDS: GABAPENTIN 300 MG CAPSULE PO SCH ×2 (08:42→16:14)
[2017-05-06] MEDS: AmLODIPine BESYLATE 5 MG TABLET PO SCH (08:42)
[2017-05-06] MEDS: HALOPERIDOL 5 MG TABLET PO SCH ×2 (08:42→20:04)
[2017-05-06] MEDS: FLUoxetine HCL 20 MG CAPSULE PO SCH (08:44)
[2017-05-06 14:41] VITALS: BP 123/82
[2017-05-06 16:12] VITALS: BP 144/79
[2017-05-07 08:00] VITALS: BP 131/61
[2017-05-07] MEDS: BENZTROPINE MESYLATE 1 MG TABLET PO SCH ×2 (08:52→20:32)
[2017-05-07] MEDS: APIXABAN 5 MG TABLET PO SCH ×2 (08:52→16:22)
[2017-05-07] MEDS: AmLODIPine BESYLATE 5 MG TABLET PO SCH (08:53)
[2017-05-07] MEDS: FLUoxetine HCL 20 MG CAPSULE PO SCH (08:54)
[2017-05-07] MEDS: GABAPENTIN 300 MG CAPSULE PO SCH ×2 (08:56→16:23)
[2017-05-07] MEDS: HALOPERIDOL 5 MG TABLET PO SCH ×2 (08:56→20:32)
[2017-05-07 16:30] VITALS: BP 132/76
[2017-05-08 08:15] VITALS: BP 121/73
[2017-05-08] MEDS: BENZTROPINE MESYLATE 1 MG TABLET PO SCH ×2 (08:44→20:32)
[2017-05-08] MEDS: HALOPERIDOL 5 MG TABLET PO SCH ×2 (08:44→20:32)
[2017-05-08] MEDS: FLUoxetine HCL 20 MG CAPSULE PO SCH (08:44)
[2017-05-08] MEDS: GABAPENTIN 300 MG CAPSULE PO SCH ×2 (08:44→16:21)
[2017-05-08] MEDS: AmLODIPine BESYLATE 5 MG TABLET PO SCH (08:44)
[2017-05-08] MEDS: APIXABAN 5 MG TABLET PO SCH ×2 (08:45→16:21)
[2017-05-08 17:00] VITALS: BP 157/78
[2017-05-09 08:15] VITALS: BP 126/76
[2017-05-09] MEDS: HALOPERIDOL 5 MG TABLET PO SCH ×2 (08:27→20:26)
[2017-05-09] MEDS: BENZTROPINE MESYLATE 1 MG TABLET PO SCH ×2 (08:27→20:26)
[2017-05-09] MEDS: APIXABAN 5 MG TABLET PO SCH ×2 (08:27→16:28)
[2017-05-09] MEDS: AmLODIPine BESYLATE 5 MG TABLET PO SCH (08:27)
[2017-05-09] MEDS: GABAPENTIN 300 MG CAPSULE PO SCH ×2 (08:27→16:28)
[2017-05-09] MEDS: FLUoxetine HCL 20 MG CAPSULE PO SCH (08:28)
[2017-05-09 17:00] VITALS: BP 132/71
[2017-05-10 08:34] VITALS: BP 128/73
[2017-05-10] MEDS: HALOPERIDOL 5 MG TABLET PO SCH ×2 (08:53→20:11)
[2017-05-10] MEDS: GABAPENTIN 300 MG CAPSULE PO SCH ×2 (08:53→16:23)
[2017-05-10] MEDS: AmLODIPine BESYLATE 5 MG TABLET PO SCH (08:53)
[2017-05-10] MEDS: BENZTROPINE MESYLATE 1 MG TABLET PO SCH ×2 (08:53→20:11)
[2017-05-10] MEDS: FLUoxetine HCL 20 MG CAPSULE PO SCH (08:54)
[2017-05-10] MEDS: APIXABAN 5 MG TABLET PO SCH ×2 (08:54→16:23)
[2017-05-10 16:53] VITALS: BP 105/60
[2017-05-11 08:30] VITALS: BP 105/58
[2017-05-11] MEDS: HALOPERIDOL 5 MG TABLET PO SCH ×2 (08:38→21:23)
[2017-05-11] MEDS: BENZTROPINE MESYLATE 1 MG TABLET PO SCH ×2 (08:38→21:24)
[2017-05-11] MEDS: AmLODIPine BESYLATE 5 MG TABLET PO SCH (08:38)
[2017-05-11] MEDS: FLUoxetine HCL 20 MG CAPSULE PO SCH (08:38)
[2017-05-11] MEDS: GABAPENTIN 300 MG CAPSULE PO SCH ×2 (08:38→15:52)
[2017-05-11] MEDS: APIXABAN 5 MG TABLET PO SCH ×2 (08:38→15:52)
[2017-05-11 16:15] VITALS: BP 113/68
[2017-05-12] MEDS: GABAPENTIN 300 MG CAPSULE PO SCH ×2 (08:03→16:37)
[2017-05-12] MEDS: AmLODIPine BESYLATE 5 MG TABLET PO SCH (08:03)
[2017-05-12] MEDS: APIXABAN 5 MG TABLET PO SCH ×2 (08:03→16:37)
[2017-05-12] MEDS: BENZTROPINE MESYLATE 1 MG TABLET PO SCH ×2 (08:03→20:46)
[2017-05-12] MEDS: HALOPERIDOL 5 MG TABLET PO SCH ×2 (08:04→20:46)
[2017-05-12] MEDS: FLUoxetine HCL 20 MG CAPSULE PO SCH (08:04)
[2017-05-12 08:49] VITALS: BP 149/89
[2017-05-12] MEDS ORDERED: FLUO-191 PO (15:02)
[2017-05-12] MEDS ORDERED: BENZ1TAB10 PO (15:02)
[2017-05-12 18:00] VITALS: BP 110/80
[2017-05-12 18:36] VITALS: BP 137/81
[2017-05-12 22:26] VITALS: BP 110/80
[2017-05-13 07:36] VITALS: BP 130/75
[2017-05-13] MEDS: FLUoxetine HCL 20 MG CAPSULE PO SCH (08:51)
[2017-05-13] MEDS: AmLODIPine BESYLATE 5 MG TABLET PO SCH (08:52)
[2017-05-13] MEDS: APIXABAN 5 MG TABLET PO SCH (08:52)
[2017-05-13] MEDS: GABAPENTIN 300 MG CAPSULE PO SCH (08:52)
[2017-05-13] MEDS: BENZTROPINE MESYLATE 1 MG TABLET PO SCH (08:52)
[2017-05-13] MEDS: HALOPERIDOL 5 MG TABLET PO SCH (08:54)
[2017-05-13 09:02] VITALS: BP 129/78
== END 2017-05-13 09:15 | disposition home or self-care (01) | DRG 885 ==
LOC: EEVIPCON 09:33 → EMS 09:33 → 3EX 13:01
DX: F25.1 Schizoaffective disorder, depressive type (principal); N17.9 Acute kidney failure, unspecified; E11.9 Type 2 diabetes mellitus without complications; R45.851 Suicidal ideations; E83.51 Hypocalcemia; B15.9 Hepatitis A without hepatic coma; G47.00 Insomnia, unspecified; I10 Essential (primary) hypertension; J44.9 Chronic obstructive pulmonary disease, unspecified; M19.90 Unspecified osteoarthritis, unspecified site; Z79.899 Other long term (current) drug therapy; Z86.711 Personal history of pulmonary embolism; F17.210 Nicotine dependence, cigarettes, uncomplicated; Z91.5 Personal history of self-harm; F12.90 Cannabis use, unspecified, uncomplicated; Z56.0 Unemployment, unspecified; Z71.51 Drug abuse counseling and surveillance of drug abuser; Z88.8 Allergy status to other drugs, medicaments and biological substances; F14.10 Cocaine abuse, uncomplicated
CPT/HCPCS: 73502; 73552; 82306; 82962; 84443; 99285; G0480

== ENCOUNTER 2017-07-01 19:51 | Inpatient (IN) | payer BC, MEDICARE ==
[~2017-07-01] VITALS: Ht 162.6 cm; Wt 73.8 kg
[~2017-07-01 19:51] MED LIST changes: +BENZ1TAB10 PO; -DIVA500T35 PO; -FERR-89 PO; +FLUO-191 PO
[2017-07-01 20:47] LABS: BASOPHILS % (AUTO) 0.3 % (0.0-2.0); EOSINOPHILS % (AUTO) 2.2 % (1.0-6.0); HEMATOCRIT 46.6 % (41-53); HEMOGLOBIN 15.8 g/dL (13.5-17.5); LYMPHOCYTES % (AUTO) 21.5 % (22.0-44.0); MEAN CORPUSCULAR HEMOGLOBIN 28.7 pg (26.0-34.0); MEAN CORPUSCULAR HGB CONC 33.9 G/dL (31.0-37.0); MEAN CORPUSCULAR VOLUME 85 fL (80-100); MONOCYTES # (AUTO) 0.3 K/uL (0.1-1.0); MONOCYTES % (AUTO) 5.4 % (2.0-9.0); NEUTROPHILS # (AUTO) 3.4 K/uL (1.8-7.7); NEUTROPHILS % (AUTO) 70.6 % (40.0-70.0); PLATELET COUNT (AUTO) 273 K/uL (150-450); RED BLOOD CELL COUNT(AUTO) 5.49 MIL/uL (4.50-5.90); RED CELL DISTRIBUTION WIDTH 15.9 % (11.5-14.5)
[2017-07-01 20:59] LABS: ANION GAP 9 mmol/L (8-16); CALCIUM, TOTAL 9.3 mg/dL (8.8-10.5); CARBON DIOXIDE 28 mmol/L (22-29); CHLORIDE 103 mmol/L (98-107); CREATININE 1.81 mg/dL (0.60-1.30); GLOMERULAR FILTR. RATE CALC 45 mL/min (>60); GLUCOSE,RANDOM 106 mg/dL (70-110); POTASSIUM 4.3 mmol/L (3.5-5.1); SODIUM SERUM 140 mmol/L (136-145); UREA NITROGEN, BLOOD 14 mg/dL (7-18)
[2017-07-01 21:00] LABS: AMPHET/METH SCREEN,URINE NEGATIVE (NEGATIVE); BARBITURATE SCREEN, URINE NEGATIVE (NEGATIVE); BENZODIAZEPINES SCREEN,URINE NEGATIVE (NEGATIVE); CANNABINOID SCREEN,URINE NEGATIVE (NEGATIVE); COCAINE SCREEN,URINE POSITIVE (NEGATIVE); METHADONE SCREEN, URINE NEGATIVE (NEGATIVE); OPIATE SCREEN,URINE NEGATIVE (NEGATIVE); PHENCYCLIDINE SCREEN,URINE NEGATIVE (NEGATIVE)
[2017-07-01 21:03] LABS: ALANINE AMINOTRANSFERASE 24 U/L (12-78); ALBUMIN 4.2 g/dL (3.4-5.0); ALKALINE PHOSPHATASE 66 U/L (46-116); ASPARTATE AMINOTRANSFERASE 16 U/L (15-37); BILIRUBIN,TOTAL 0.6 mg/dL (0.1-1.0); TOTAL PROTEIN, SERUM 8.4 g/dL (6.4-8.2)
[2017-07-01] MEDS ORDERED: HALOPERIDOL 5 MG TABLET PO ONE (21:30)
[2017-07-01 21:52] LABS: APPEARANCE,URINE CLEAR (CLEAR); BILIRUBIN,URINE NEGATIVE (NEGATIVE); GLUCOSE, URINE (UA) NEGATIVE (NEGATIVE); KETONES,URINE NEGATIVE (NEGATIVE); LEUKOCYTE ESTERASE ,URINE NEGATIVE (NEGATIVE); NITRATE,URINE NEGATIVE (NEGATIVE); OCCULT BLOOD,URINE NEGATIVE (NEGATIVE); PH,URINE 5.5 (5.0-8.0); PROTEIN,URINE SEE CONFIRM (NEGATIVE); UROBILINOGEN,URINE 0.2 mg/dL (<=1.0)
[2017-07-01 22:06] LABS: SULFOSALICYLIC ACID,URINE 1+ (Negative)
[2017-07-01 22:07] LABS: BACTERIA,URINE Rare /HPF (None Seen); RBC,URINE 0-2 /HPF (0-2); SQUAMOUS EPITHELIAL CELL,UR Rare /LPF (None Seen); WBC,URINE 0-2 /HPF (0-5)
[2017-07-01 22:08] LABS: CHOL/HDL RATIO 2.4 (4.2-7.3); CHOLESTEROL 174 mg/dL (131-200); HDL CHOLESTEROL 72 mg/dL (40-60); LDL CHOL (CALC.) 81 mg/dL (0-130); THYROID STIMULATING HORMONE 0.84 uIU/mL (0.36-3.74); TRIGLYCERIDES 104 mg/dL (15-150)
[2017-07-02 01:40] VITALS: BP 120/76
[2017-07-02] MEDS ORDERED: INFLUENZA VIRUS VACCINE QVS 2017-18 (3YR+)/PF 60 MCG/0.5 ML SYRINGE IM ONE (02:45)
[2017-07-02] MEDS ORDERED: PNEUMOCOCCAL VACCINE POLYVALENT 0.5 ML VIAL [PPSV23] IM ONE (02:45)
[2017-07-02] MEDS ORDERED: MAGNESIUM HYDROXIDE SUSPENSION 30 ML UDCUP PO PRN (08:30)
[2017-07-02] MEDS ORDERED: MAG HYDROX/AL HYDROX/SIMETH ES 30 ML SUSPENSION UDCUP PO PRN (08:30)
[2017-07-02] MEDS ORDERED: IBUPROFEN 600 MG TABLET PO PRN (08:30)
[2017-07-02] MEDS ORDERED: ALBUTEROL SULFATE HFA 90 MCG/PUFF 8 GM INHALER IH PRN (08:30)
[2017-07-02] MEDS ORDERED: BENZOCAINE/MENTHOL LOZENGE [8 LOZENGES/PACKET] MM PRN (08:30)
[2017-07-02] MEDS ORDERED: PETROLATUM,WHITE 71 GM JELLY TP PRN (08:30)
[2017-07-02] MEDS ORDERED: ONDANSETRON HCL 4 MG TABLET PO PRN (08:30)
[2017-07-02] MEDS ORDERED: ACETAMINOPHEN 325 MG TABLET PO PRN (08:30)
[2017-07-02] MEDS ORDERED: LOPERAMIDE HCL 2 MG CAPSULE PO PRN (08:30)
[2017-07-02] MEDS ORDERED: BACITRACIN 28.4 GM OINTMENT TP PRN (08:30)
[2017-07-02] MEDS ORDERED: CloNIDine HCL 0.1 MG TABLET PO PRN (08:30)
[2017-07-02 08:37] VITALS: BP 132/78
[2017-07-02 08:40] VITALS: BP 132/78
[2017-07-02] MEDS: AmLODIPine BESYLATE 5 MG TABLET PO SCH (09:32)
[2017-07-02] MEDS: GABAPENTIN 300 MG CAPSULE PO SCH ×2 (12:34→16:01)
[2017-07-02 17:03] VITALS: BP 129/71
[2017-07-02] MEDS: BENZTROPINE MESYLATE 1 MG TABLET PO SCH (20:35)
[2017-07-02] MEDS: HALOPERIDOL 5 MG TABLET PO SCH (20:35)
[2017-07-03 06:53] LABS: ANION GAP 7 mmol/L (8-16); CALCIUM, TOTAL 8.7 mg/dL (8.8-10.5); CARBON DIOXIDE 30 mmol/L (22-29); CHLORIDE 106 mmol/L (98-107); CREATININE 1.35 mg/dL (0.60-1.30); GLOMERULAR FILTR. RATE CALC > 60 mL/min (>60); GLUCOSE,RANDOM 85 mg/dL (70-110); POTASSIUM 4.3 mmol/L (3.5-5.1); SODIUM SERUM 143 mmol/L (136-145); UREA NITROGEN, BLOOD 13 mg/dL (7-18)
[2017-07-03 08:05] VITALS: BP 128/78
[2017-07-03] MEDS: HALOPERIDOL 5 MG TABLET PO SCH ×2 (08:37→20:18)
[2017-07-03] MEDS: BENZTROPINE MESYLATE 1 MG TABLET PO SCH ×2 (08:37→20:18)
[2017-07-03] MEDS: AmLODIPine BESYLATE 5 MG TABLET PO SCH (08:37)
[2017-07-03] MEDS: GABAPENTIN 300 MG CAPSULE PO SCH ×3 (08:37→16:56)
[2017-07-03] MEDS: FLUoxetine HCL 20 MG CAPSULE PO SCH (08:38)
[2017-07-03 18:27] VITALS: BP 125/76
[2017-07-03] MEDS: ZOLPIDEM TARTRATE 10 MG TABLET PO PRN (21:48)
[2017-07-04 08:00] VITALS: BP 111/70
[2017-07-04] MEDS: FLUoxetine HCL 20 MG CAPSULE PO SCH (08:40)
[2017-07-04] MEDS: GABAPENTIN 300 MG CAPSULE PO SCH ×3 (08:43→16:05)
[2017-07-04] MEDS: AmLODIPine BESYLATE 5 MG TABLET PO SCH (08:43)
[2017-07-04] MEDS: HALOPERIDOL 5 MG TABLET PO SCH ×2 (08:44→20:15)
[2017-07-04] MEDS: BENZTROPINE MESYLATE 1 MG TABLET PO SCH ×2 (08:45→20:15)
[2017-07-04 16:17] VITALS: BP 139/72
[2017-07-04] MEDS: ZOLPIDEM TARTRATE 10 MG TABLET PO PRN (20:15)
[2017-07-04 22:00] VITALS: BP 132/60
[2017-07-04 23:35] VITALS: BP 141/109
[2017-07-05] MEDS ORDERED: LIDOCAINE HCL 1%/EPI 1:200,000/PF 10 ML VIAL INJ ONE (01:15)
[2017-07-05] MEDS ORDERED: BACITRACIN 0.9 GM PACKET OINTMENT TP ONE (02:48)
[2017-07-05 03:30] VITALS: BP 147/85
[2017-07-05] MEDS: LORazepam 2 MG TABLET PO PRN (03:49)
[2017-07-05] MEDS: HALOPERIDOL 5 MG TABLET PO PRN (04:44)
[2017-07-05 07:00] VITALS: BP 145/71
[2017-07-05 09:00] VITALS: BP 142/61
[2017-07-05] MEDS: GABAPENTIN 300 MG CAPSULE PO SCH ×3 (09:00→16:04)
[2017-07-05] MEDS: AmLODIPine BESYLATE 5 MG TABLET PO SCH (09:00)
[2017-07-05] MEDS: HALOPERIDOL 5 MG TABLET PO SCH ×2 (09:00→21:00)
[2017-07-05] MEDS: FLUoxetine HCL 20 MG CAPSULE PO SCH (09:00)
[2017-07-05] MEDS: BENZTROPINE MESYLATE 1 MG TABLET PO SCH ×2 (09:00→21:00)
[2017-07-05 16:07] VITALS: BP 146/73
[2017-07-06 08:30] VITALS: BP 135/73
[2017-07-06] MEDS: BENZTROPINE MESYLATE 1 MG TABLET PO SCH ×2 (08:39→21:05)
[2017-07-06] MEDS: HALOPERIDOL 5 MG TABLET PO SCH ×2 (08:39→21:05)
[2017-07-06] MEDS: FLUoxetine HCL 20 MG CAPSULE PO SCH (08:39)
[2017-07-06] MEDS: GABAPENTIN 300 MG CAPSULE PO SCH ×3 (08:39→16:33)
[2017-07-06] MEDS: AmLODIPine BESYLATE 5 MG TABLET PO SCH (08:40)
[2017-07-06 17:13] VITALS: BP 116/71
[2017-07-06] MEDS: ZOLPIDEM TARTRATE 10 MG TABLET PO PRN (21:50)
[2017-07-07 00:24] VITALS: BP 137/69
[2017-07-07] MEDS: LORazepam 2 MG TABLET PO PRN (00:53)
[2017-07-07] MEDS: FLUoxetine HCL 20 MG CAPSULE PO SCH (09:08)
[2017-07-07] MEDS: BENZTROPINE MESYLATE 1 MG TABLET PO SCH ×2 (09:08→20:50)
[2017-07-07] MEDS: GABAPENTIN 300 MG CAPSULE PO SCH ×3 (09:08→16:16)
[2017-07-07] MEDS: AmLODIPine BESYLATE 5 MG TABLET PO SCH (09:09)
[2017-07-07] MEDS: HALOPERIDOL 5 MG TABLET PO SCH ×2 (09:10→20:50)
[2017-07-07 09:44] VITALS: BP 129/88
[2017-07-07 10:33] LABS: BASOPHILS % (AUTO) 0.7 % (0.0-2.0); EOSINOPHILS % (AUTO) 4.7 % (1.0-6.0); HEMATOCRIT 43.8 % (41-53); HEMOGLOBIN 14.5 g/dL (13.5-17.5); LYMPHOCYTES # (AUTO) 1.7 K/uL (1.0-4.8); LYMPHOCYTES % (AUTO) 27.4 % (22.0-44.0); MEAN CORPUSCULAR HEMOGLOBIN 28.4 pg (26.0-34.0); MEAN CORPUSCULAR VOLUME 86 fL (80-100); MONOCYTES # (AUTO) 0.7 K/uL (0.1-1.0); MONOCYTES % (AUTO) 10.9 % (2.0-9.0); NEUTROPHILS # (AUTO) 3.4 K/uL (1.8-7.7); NEUTROPHILS % (AUTO) 56.3 % (40.0-70.0); PLATELET COUNT (AUTO) 247 K/uL (150-450); RED CELL DISTRIBUTION WIDTH 15.7 % (11.5-14.5)
[2017-07-07 10:44] LABS: ALBUMIN 3.6 g/dL (3.4-5.0); BILIRUBIN,TOTAL 0.5 mg/dL (0.1-1.0); CALCIUM, TOTAL 8.8 mg/dL (8.8-10.5); CREATININE 1.42 mg/dL (0.60-1.30); POTASSIUM 4.3 mmol/L (3.5-5.1); TOTAL PROTEIN, SERUM 7.5 g/dL (6.4-8.2)
[2017-07-07] MEDS ORDERED: FLUoxetine HCL 20 MG CAPSULE PO ONE (11:00)
[2017-07-07 15:59] LABS: APPEARANCE,URINE CLEAR (CLEAR); BILIRUBIN,URINE NEGATIVE (NEGATIVE); GLUCOSE, URINE (UA) NEGATIVE (NEGATIVE); KETONES,URINE NEGATIVE (NEGATIVE); LEUKOCYTE ESTERASE ,URINE NEGATIVE (NEGATIVE); NITRATE,URINE NEGATIVE (NEGATIVE); OCCULT BLOOD,URINE NEGATIVE (NEGATIVE); PROTEIN,URINE NEGATIVE (NEGATIVE); UROBILINOGEN,URINE 0.2 mg/dL (<=1.0)
[2017-07-07] MEDS: ZOLPIDEM TARTRATE 10 MG TABLET PO PRN (20:50)
[2017-07-07 21:11] VITALS: BP 110/71
[2017-07-08] MEDS: HALOPERIDOL 5 MG TABLET PO PRN (01:01)
[2017-07-08] MEDS: LORazepam 2 MG TABLET PO PRN (01:01)
[2017-07-08 02:24] VITALS: BP 115/77
[2017-07-08 07:53] LABS: HEMOGLOBIN A1C 5.7 % (4.5-6.2)
[2017-07-08 08:05] VITALS: BP 140/85
[2017-07-08 08:07] LABS: CALCIUM, TOTAL 8.9 mg/dL (8.8-10.5); CREATININE 1.43 mg/dL (0.60-1.30); MAGNESIUM 1.8 mg/dL (1.80-2.40); PHOSPHORUS 3.6 mg/dL (2.5-4.9); POTASSIUM 4.2 mmol/L (3.5-5.1)
[2017-07-08] MEDS: HALOPERIDOL 5 MG TABLET PO SCH ×2 (09:08→20:26)
[2017-07-08] MEDS: GABAPENTIN 300 MG CAPSULE PO SCH ×3 (09:08→16:09)
[2017-07-08] MEDS: AmLODIPine BESYLATE 5 MG TABLET PO SCH (09:08)
[2017-07-08] MEDS: FLUoxetine HCL 20 MG CAPSULE PO SCH (09:08)
[2017-07-08] MEDS: BENZTROPINE MESYLATE 1 MG TABLET PO SCH ×2 (09:08→20:25)
[2017-07-08 19:02] VITALS: BP 137/82
[2017-07-09] MEDS: BENZTROPINE MESYLATE 1 MG TABLET PO SCH ×2 (09:46→21:28)
[2017-07-09] MEDS: GABAPENTIN 300 MG CAPSULE PO SCH ×3 (09:46→16:11)
[2017-07-09] MEDS: HALOPERIDOL 5 MG TABLET PO SCH ×2 (09:47→21:28)
[2017-07-09] MEDS: FLUoxetine HCL 20 MG CAPSULE PO SCH (09:48)
[2017-07-09] MEDS: AmLODIPine BESYLATE 5 MG TABLET PO SCH (09:48)
[2017-07-09 10:00] VITALS: BP 137/87
[2017-07-09 16:21] VITALS: BP 126/64
[2017-07-09] MEDS: LORazepam 2 MG TABLET PO PRN (19:19)
[2017-07-10 08:19] VITALS: BP 115/56
[2017-07-10] MEDS: FLUoxetine HCL 20 MG CAPSULE PO SCH (08:56)
[2017-07-10] MEDS: BENZTROPINE MESYLATE 1 MG TABLET PO SCH ×2 (08:56→20:46)
[2017-07-10] MEDS: HALOPERIDOL 5 MG TABLET PO SCH ×2 (08:57→20:46)
[2017-07-10] MEDS: GABAPENTIN 300 MG CAPSULE PO SCH ×3 (08:57→16:38)
[2017-07-10] MEDS: AmLODIPine BESYLATE 5 MG TABLET PO SCH (08:57)
[2017-07-10 21:29] VITALS: BP 132/86
[2017-07-11 00:21] VITALS: BP 129/66
[2017-07-11] MEDS: ZOLPIDEM TARTRATE 10 MG TABLET PO PRN (00:24)
[2017-07-11] MEDS: LORazepam 2 MG TABLET PO PRN (02:36)
[2017-07-11 02:38] VITALS: BP 134/81
[2017-07-11] MEDS: HALOPERIDOL 5 MG TABLET PO SCH ×2 (09:24→20:18)
[2017-07-11] MEDS: BENZTROPINE MESYLATE 1 MG TABLET PO SCH ×2 (09:24→20:18)
[2017-07-11] MEDS: AmLODIPine BESYLATE 5 MG TABLET PO SCH (09:25)
[2017-07-11] MEDS: FLUoxetine HCL 20 MG CAPSULE PO SCH (09:25)
[2017-07-11] MEDS: GABAPENTIN 300 MG CAPSULE PO SCH (09:31)
[2017-07-11 10:04] VITALS: BP 125/81
[2017-07-11 16:01] LABS: BASOPHILS % (AUTO) 0.3 % (0.0-2.0); EOSINOPHILS % (AUTO) 3.4 % (1.0-6.0); HEMOGLOBIN 13.9 g/dL (13.5-17.5); LYMPHOCYTES # (AUTO) 1.2 K/uL (1.0-4.8); LYMPHOCYTES % (AUTO) 18.4 % (22.0-44.0); MEAN CORPUSCULAR HEMOGLOBIN 28.3 pg (26.0-34.0); MEAN CORPUSCULAR VOLUME 86 fL (80-100); MONOCYTES # (AUTO) 0.7 K/uL (0.1-1.0); MONOCYTES % (AUTO) 10.8 % (2.0-9.0); NEUTROPHILS # (AUTO) 4.3 K/uL (1.8-7.7); NEUTROPHILS % (AUTO) 67.1 % (40.0-70.0); PLATELET COUNT (AUTO) 231 K/uL (150-450); RED CELL DISTRIBUTION WIDTH 15.2 % (11.5-14.5)
[2017-07-11 16:08] LABS: CREATININE 1.43 mg/dL (0.60-1.30); PHOSPHORUS 3.8 mg/dL (2.5-4.9); POTASSIUM 4.2 mmol/L (3.5-5.1)
[2017-07-11 16:38] LABS: PLATELET MORPHOLOGY COMMENT NORMAL
[2017-07-11 20:25] VITALS: BP 129/89
[2017-07-12 01:40] VITALS: BP 123/66
[2017-07-12 08:21] VITALS: BP 127/73
[2017-07-12] MEDS: AmLODIPine BESYLATE 5 MG TABLET PO SCH (08:46)
[2017-07-12] MEDS: BENZTROPINE MESYLATE 1 MG TABLET PO SCH ×2 (08:46→20:01)
[2017-07-12] MEDS: HALOPERIDOL 5 MG TABLET PO SCH ×2 (08:46→20:01)
[2017-07-12] MEDS: FLUoxetine HCL 20 MG CAPSULE PO SCH (08:46)
[2017-07-12 16:39] VITALS: BP 119/79
[2017-07-12] MEDS: ZOLPIDEM TARTRATE 10 MG TABLET PO PRN (23:01)
[2017-07-13] MEDS: LORazepam 2 MG TABLET PO PRN (01:38)
[2017-07-13 01:40] VITALS: BP 132/58
[2017-07-13] MEDS: AmLODIPine BESYLATE 5 MG TABLET PO SCH (09:45)
[2017-07-13] MEDS: HALOPERIDOL 5 MG TABLET PO SCH ×2 (09:45→22:25)
[2017-07-13] MEDS: BENZTROPINE MESYLATE 1 MG TABLET PO SCH ×2 (09:45→22:25)
[2017-07-13] MEDS: FLUoxetine HCL 20 MG CAPSULE PO SCH (09:45)
[2017-07-13 12:30] VITALS: BP 136/62
[2017-07-13 16:54] VITALS: BP 116/82
[2017-07-14 01:33] VITALS: BP 113/76
[2017-07-14] MEDS: BENZTROPINE MESYLATE 1 MG TABLET PO SCH ×2 (09:31→21:25)
[2017-07-14] MEDS: HALOPERIDOL 5 MG TABLET PO SCH ×2 (09:31→21:26)
[2017-07-14] MEDS: AmLODIPine BESYLATE 5 MG TABLET PO SCH (09:32)
[2017-07-14] MEDS: FLUoxetine HCL 20 MG CAPSULE PO SCH (09:32)
[2017-07-14 13:00] VITALS: BP 122/72
[2017-07-14 16:30] VITALS: BP 103/61
[2017-07-14] MEDS: ZOLPIDEM TARTRATE 10 MG TABLET PO PRN (23:28)
[2017-07-15] MEDS: LORazepam 2 MG TABLET PO PRN (01:01)
[2017-07-15 01:04] VITALS: BP 134/77
[2017-07-15 08:10] VITALS: BP 119/65
[2017-07-15] MEDS: FLUoxetine HCL 20 MG CAPSULE PO SCH (10:52)
[2017-07-15] MEDS: AmLODIPine BESYLATE 5 MG TABLET PO SCH (10:53)
[2017-07-15] MEDS: HALOPERIDOL 5 MG TABLET PO SCH ×2 (10:54→20:07)
[2017-07-15] MEDS: BENZTROPINE MESYLATE 1 MG TABLET PO SCH ×2 (10:54→20:07)
[2017-07-15 18:00] VITALS: BP 116/78
[2017-07-16 00:16] VITALS: BP 110/55
[2017-07-16] MEDS: ZOLPIDEM TARTRATE 10 MG TABLET PO PRN (01:04)
[2017-07-16 03:10] VITALS: BP 130/86
[2017-07-16 03:15] VITALS: BP 130/86
[2017-07-16] MEDS: HALOPERIDOL 5 MG TABLET PO SCH ×2 (08:19→20:23)
[2017-07-16] MEDS: AmLODIPine BESYLATE 5 MG TABLET PO SCH (08:19)
[2017-07-16] MEDS: BENZTROPINE MESYLATE 1 MG TABLET PO SCH ×2 (08:19→20:23)
[2017-07-16] MEDS: FLUoxetine HCL 20 MG CAPSULE PO SCH (08:19)
[2017-07-16 10:44] LABS: CREATININE 1.52 mg/dL (0.60-1.30); MAGNESIUM 1.8 mg/dL (1.80-2.40); PHOSPHORUS 3.7 mg/dL (2.5-4.9)
[2017-07-16 10:54] LABS: POTASSIUM 4.4 mmol/L (3.5-5.1)
[2017-07-16 13:42] VITALS: BP 122/76
[2017-07-16 18:12] VITALS: BP 117/70
[2017-07-17 08:15] VITALS: BP 131/69
[2017-07-17] MEDS: AmLODIPine BESYLATE 5 MG TABLET PO SCH (09:19)
[2017-07-17] MEDS: HALOPERIDOL 5 MG TABLET PO SCH ×2 (09:19→20:55)
[2017-07-17] MEDS: BENZTROPINE MESYLATE 1 MG TABLET PO SCH ×2 (09:19→20:55)
[2017-07-17] MEDS: FLUoxetine HCL 20 MG CAPSULE PO SCH (09:19)
[2017-07-17 16:00] VITALS: BP 133/82
[2017-07-18 00:20] VITALS: BP 152/81
[2017-07-18 08:15] VITALS: BP 131/75
[2017-07-18] MEDS: BENZTROPINE MESYLATE 1 MG TABLET PO SCH ×2 (09:22→21:48)
[2017-07-18] MEDS: AmLODIPine BESYLATE 5 MG TABLET PO SCH (09:23)
[2017-07-18] MEDS: FLUoxetine HCL 20 MG CAPSULE PO SCH (09:23)
[2017-07-18] MEDS: HALOPERIDOL 5 MG TABLET PO SCH ×2 (09:23→21:48)
[2017-07-18 17:16] VITALS: BP 120/86
[2017-07-19 08:30] VITALS: BP 117/76
[2017-07-19] MEDS: FLUoxetine HCL 20 MG CAPSULE PO SCH (09:03)
[2017-07-19] MEDS: HALOPERIDOL 5 MG TABLET PO SCH ×2 (09:04→20:28)
[2017-07-19] MEDS: BENZTROPINE MESYLATE 1 MG TABLET PO SCH ×2 (09:04→20:28)
[2017-07-19] MEDS: AmLODIPine BESYLATE 5 MG TABLET PO SCH (09:04)
[2017-07-19 17:00] VITALS: BP 120/73
[2017-07-20] MEDS: AmLODIPine BESYLATE 5 MG TABLET PO SCH (08:07)
[2017-07-20] MEDS: HALOPERIDOL 5 MG TABLET PO SCH (08:07)
[2017-07-20] MEDS: BENZTROPINE MESYLATE 1 MG TABLET PO SCH (08:07)
[2017-07-20] MEDS: FLUoxetine HCL 20 MG CAPSULE PO SCH (08:08)
[2017-07-20 09:33] VITALS: BP 119/79
== END 2017-07-20 10:38 | disposition home or self-care (01) | DRG 885 ==
LOC: EMS 19:54 → 3EX 23:46
PROC: 3E0234Z Introduction of Serum, Toxoid and Vaccine into Muscle, Percutaneous Approach (ICD-10-PCS; principal; 2017-07-02)
DX: F25.1 Schizoaffective disorder, depressive type (principal); N17.9 Acute kidney failure, unspecified; E11.22 Type 2 diabetes mellitus with diabetic chronic kidney disease; R45.851 Suicidal ideations; J44.9 Chronic obstructive pulmonary disease, unspecified; B15.9 Hepatitis A without hepatic coma; W19.XXXA Unspecified fall, initial encounter; S01.112A Laceration without foreign body of left eyelid and periocular area, initial encounter; F17.200 Nicotine dependence, unspecified, uncomplicated; G47.00 Insomnia, unspecified; I12.9 Hypertensive chronic kidney disease with stage 1 through stage 4 chronic kidney disease, or unspecified chronic kidney disease; M19.90 Unspecified osteoarthritis, unspecified site; N18.3 Chronic kidney disease, stage 3 (moderate); M81.0 Age-related osteoporosis without current pathological fracture; F14.90 Cocaine use, unspecified, uncomplicated; Z79.899 Other long term (current) drug therapy; Z86.711 Personal history of pulmonary embolism; Z90.49 Acquired absence of other specified parts of digestive tract; Z91.5 Personal history of self-harm; Z91.81 History of falling; Z88.8 Allergy status to other drugs, medicaments and biological substances; Y93.89 Activity, other specified; Y92.89 Other specified places as the place of occurrence of the external cause; Z23 Encounter for immunization
CPT/HCPCS: 70450; 76770; 82043; 82570; 83036; 83735; 84100; 84443; 97116; 97162; 97165; 99285; G0480; J3490

== ENCOUNTER 2019-01-11 11:25 | Emergency (ER) | payer OTHER ==
[~2019-01-11] VITALS: Ht 165.1 cm; Wt 85.5 kg
[~2019-01-11 11:25] MED LIST changes: -APIX5TAB PO; -GABA-531 PO; -HALO5 PO; +HALO5TAB2 PO
[2019-01-11 11:27] VITALS: BP 156/86
[2019-01-11] MEDS ORDERED: RIVA10 PO (11:37)
[2019-01-11] MEDS ORDERED: BACITRACIN 0.9 GM PACKET OINTMENT TP ONE (12:15)
== END 2019-01-11 13:12 | disposition home or self-care (01) ==
LOC: EMS 11:25
DX: S91.111A Laceration without foreign body of right great toe without damage to nail, initial encounter (principal); I10 Essential (primary) hypertension; E11.9 Type 2 diabetes mellitus without complications; F20.9 Schizophrenia, unspecified; F32.9 Major depressive disorder, single episode, unspecified; F17.210 Nicotine dependence, cigarettes, uncomplicated; Z88.8 Allergy status to other drugs, medicaments and biological substances; W45.8XXA Other foreign body or object entering through skin, initial encounter; Y93.89 Activity, other specified; Y92.89 Other specified places as the place of occurrence of the external cause; Y99.8 Other external cause status
CPT/HCPCS: 99406